=== PATIENT | female | born 1960 | race Caucasian/White ===

== ENCOUNTER → 2017-04-19 | Outpatient (CLI) | payer OTHER ==
[~2017-04-19] MED LIST: CALCIUM 500 + D1 TAB PO; CARDI-OMEGA1000 MG PO; CENTRUM SILVER1 TA1 PO; DIPHENHYDRAMINE50 MG PO; ESTRACE; GENTAMICIN EYE D5 ML OD; NEXIUM 40MG40 MG PEG; NEXIUM PO; PRAVASTATIN40 MG PO; SYNTHROID PO; SYNTHROID0.075 MG PO; VALIUM5 MG PO; ZETIA 10MG TAB10 MG PO; ZYRTEC
== END ==
LOC: COL.CARD 08:40
DX: R41.89 Other symptoms and signs involving cognitive functions and awareness (principal)

== ENCOUNTER → 2017-05-20 | Outpatient (CLI) | payer OTHER | LOC: COL.RAD 14:28 | DX: Z01.89 Encounter for other specified special examinations (principal) ==

== ENCOUNTER → 2017-06-27 | Outpatient (CLI) | payer OTHER ==
[~2017-06-27] VITALS: Ht 162.6 cm; Wt 82.7 kg
[~2017-06-27] MED LIST changes: -ESTRACE; +ESTRACE 1MG1 MG/TAB PO; +PROTONIX 40MG T40 MG PO; +SYNTHROID0.1 MG/TAB PO
[2017-06-27 12:40] VITALS: BP 132/92; PULSE 101
[2017-06-27 13:28] VITALS: BP 156/100; PULSE 63
[2017-06-27 13:45] VITALS: BP 156/100; PULSE 63
[2017-06-27 13:50] VITALS: BP 146/82; PULSE 63
== END ==
LOC: COL.RAD 12:24
DX: F41.9 Anxiety disorder, unspecified (principal); R55 Syncope and collapse; R41.89 Other symptoms and signs involving cognitive functions and awareness
CPT/HCPCS: G9654; J2704